=== PATIENT | female | born 1955 | race Caucasian/White ===

== ENCOUNTER → 2021-06-26 14:41 | Outpatient (CLI) | payer OTHER, MEDICAID, SELFPAY ==
--- NOTE | 2021-06-26 | DI.ECHO.S_ITS ---
[facility]---------+ [facility] +---------+ : : [address] [place] : : : : [id number] : : : : Phone: [phone] +---------+ Echocardiogram Report + + :Name: SPENCER MCCLURE Study Date: 06/26/2021 Height: 68 in : :[facility] ReadingLocation: Weight: 202 lb : : Gender: Female BSA: 2.1 m2 : :: 1955 Age: 65 yrs BP: 140/93 mmHg: :Reason For Study: ASCENDING AORTIC ENLARGEMENT : :Ordering Physician: Brenda : :Claus Espinzoa Performed By: Jayleen Forbes : + + Interpretation Summary 1) Normal left ventricular thickness, size, wall motion, and systolic function (EF 55-60%). 2) Normal right ventricular size and function. 3) There is mild aortic regurgitation. 4) The ascending aorta is moderately enlarged at 4.3cm. 5) No prior Echo available for comparison. Procedure: A two-dimensional transthoracic echocardiogram with color flow and Doppler was performed. The study quality was technically adequate. There is no prior echocardiogram noted for this patient. The patient was in normal sinus rhythm during the exam. Left Ventricle: The left ventricle appears normal in size, wall thickness, and systolic function without any focal wall motion abnormalities. The ejection fraction is estimated to be 55-60%. Diastolic parameters suggest a relaxation abnormality of the left ventricle, consistent with probable normal filling pressures. Right Ventricle: The right ventricle is normal in size and function. Atria: There is borderline biatrial enlargement. There is no Doppler evidence for an interatrial shunt. Mitral Valve: The mitral valve is normal in structure and function. The mitral valve leaflets are slightly calcified. There is mild mitral regurgitation. Aortic Valve: The aortic valve is trileaflet. The aortic valve opens well. There is no aortic valve stenosis. There is mild aortic regurgitation. Tricuspid Valve: The tricuspid valve is normal in structure and function. There is a trace or physiologic amount of tricuspid regurgitation. The right ventricular systolic pressure is estimated to be at least 27 mmHg based on an estimated right atrial pressure of 8 mm Hg. Pulmonic Valve: The pulmonic valve is not well seen, but is grossly normal. There is trace pulmonic regurgitation. Great Vessels: The aortic root is borderline dilated. The ascending aorta is moderately enlarged. The aortic arch is mildly enlarged. The IVC is of normal diameter and collapses less than 50% with a sniff. This suggests a right atrial pressure of 8 mm Hg. Pericardium/ Pleura There is no pericardial effusion. MMode/2D Measurements & Calculations LVIDd: 5.2 cm LVOT diam: 2.4 cm LVIDs: 3.6 cm Ao root diam: 4.0 cm FS: 30.5 % asc Aorta Diam: 4.3 cm EPSS: 0.70 cm Ao Arch Diam (Prox Trans): 3.7 cm IVSd: 0.91 cm LVPWd: 0.81 cm LV martinez. diameter/BSA (cm/m^2): 2.5 LV sys. diameter/BSA (cm/m^2): 1.8 LA A2 area: 20.1 cm2 RA long axis: 5.7 cm LA A4 area: 20.6 cm2 RA area: 20.3 cm2 LA length (vol): 5.7 cm RA vol: 61.0 ml LA vol: 62.3 ml RA : 29.7 ml/m2 LA vol index: 30.4 ml/m2 IVC diam: 1.7 cm RVD1 (basal): 3.6 cm TAPSE: 2.5 cm Doppler Measurements & Calculations Ao V2 max: 188.9 cm/sec LVOT Max Chris: 88.9 cm/sec Ao V2 mean: 129.4 cm/sec LV V1 max P.2 mmHg Ao max P.3 mmHg LV V1 VTI: 20.9 cm Ao mean P.3 mmHg DYLAN(I,D): 2.2 cm2 Ao V2 VTI: 42.1 cm DYLAN(V,D): 2.1 cm2 sev ratio: 0.50 DYLAN indexed to BSA (cm^2/m^2): 1.1 AI P1/2t: 693.0 msec AI dec slope: 173.6 cm/sec2 MV E max chris: 73.5 cm/sec TR max chris: 216.9 cm/sec MV A max chris: 85.0 cm/sec TR max P.8 mmHg MV E/A: 0.86 PA V2 max: 65.9 cm/sec Med Peak E' Chris: 5.0 cm/sec PA V2 mean: 41.6 cm/sec E/E' med: 14.8 PA mean P.84 mmHg Lat Peak E' Chris: 7.3 cm/sec PA pr(Accel): -6.6 mmHg E/E' lat: 10.1 E/e' average: 12.4 MV dec time: 0.29 sec SV(LVOT): 91.6 ml Reading Physician:11:00 AM
== END ==
PROVIDERS: PCP Physician Assistant Medical; Referring Provider Internal Medicine Cardiovascular Disease; Visit Provider Internal Medicine Cardiovascular Disease
DX: I77.89 Other specified disorders of arteries and arterioles (principal); I08.0 Rheumatic disorders of both mitral and aortic valves
CPT/HCPCS: 93306

== ENCOUNTER → 2022-07-06 09:04 | Outpatient (CLI) | payer OTHER, MEDICAID, SELFPAY ==
--- NOTE | 2022-07-06 | DI.ECHO.S_ITS ---
[facility] +---------+ [facility] +---------+ : : [address] : : : : [id number] : : : : Phone: [phone] +---------+ Echocardiogram Report + + :Name: SPENCER MCCLURE Study Date: 07/06/2022 Height: 68 in : :[facility] ReadingLocation: Weight: 195 lb : : Gender: Female BSA: 2.0 m2 : :: 1955 Age: 66 yrs BP: 134/82 mmHg: :Reason For Study: CHEST PAIN : :Ordering Physician: DAMION, : :MELVIN Performed By: Tea Crowley : :Referring: MELVIN ESPINOZA : + + Interpretation Summary 1) Normal left ventricular thickness, size, wall motion, and systolic function (EF 55-60%). 2) Normal right ventricular size and function. 3) There is mild to moderate aortic regurgitation. 4) The ascending aorta is moderately enlarged at 4.3cm. 5) Compared to the Echo done 06/26/2021, aortic regurgitation has increased from mild to mild-moderate on this study. Procedure: A two-dimensional transthoracic echocardiogram with color flow and Doppler was performed. The study quality was technically adequate. Comparison is made with the echocardiogram of 06/26/2021. The patient was in sinus rhythm with heart rates between 53-65 bpm during the exam. Left Ventricle: The left ventricle is normal in size and wall thickness. The ejection fraction is estimated to be 55-60%. Left ventricular systolic function appears normal without focal wall motion abnormalities. Diastolic parameters suggest a relaxation abnormality of the left ventricle, consistent with probable normal filling pressures. Right Ventricle: The right ventricle is normal in size and function. Atria: The left atrium is moderately dilated. The right atrium is normal in size. There is no Doppler evidence for an interatrial shunt. Mitral Valve: The mitral valve is normal in structure and function. There is mild mitral regurgitation. Aortic Valve: The aortic valve is trileaflet. The aortic valve opens well. There is no aortic valve stenosis. There is mild to moderate aortic regurgitation. Tricuspid Valve: The tricuspid valve is normal in structure and function. There is trace tricuspid regurgitation. Pulmonary artery pressures cannot be estimated because of the lack of a measurable TR jet velocity. Pulmonic Valve: The pulmonic valve leaflets are thin and pliable; valve motion is normal. There is no pulmonic valvular regurgitation. Great Vessels: The aortic root is borderline dilated. The ascending aorta is moderately enlarged. The IVC is of normal diameter and collapses greater than 50% with a sniff. This suggests a low right atrial pressure of 3 mm Hg. Pericardium/ Pleura There is no pericardial effusion. There is no pleural effusion. MMode/2D Measurements & Calculations LVIDd: 5.5 cm LVOT diam: 2.2 cm LVIDs: 3.5 cm Ao root diam: 4.0 cm FS: 37.2 % asc Aorta Diam: 4.3 cm EPSS: 0.93 cm Ao Arch Diam (Prox Trans): 3.4 cm IVSd: 0.83 cm LVPWd: 0.91 cm LV martinez. diameter/BSA (cm/m^2): 2.7 LV sys. diameter/BSA (cm/m^2): 1.7 LA A2 area: 24.6 cm2 RA long axis: 5.5 cm LA A4 area: 22.7 cm2 RA area: 18.2 cm2 LA length (vol): 5.9 cm RA vol: 51.0 ml LA vol: 80.9 ml RA : 25.2 ml/m2 LA vol index: 40.0 ml/m2 IVC diam: 1.7 cm RVD1 (basal): 3.4 cm RVD2 (mid): 2.8 cm TAPSE: 1.7 cm Doppler Measurements & Calculations Ao V2 max: 157.5 cm/sec LVOT Max Chris: 90.0 cm/sec Ao V2 mean: 110.9 cm/sec LV V1 max P.2 mmHg Ao max P.9 mmHg LV V1 VTI: 21.7 cm Ao mean P.4 mmHg DYLAN(I,D): 2.2 cm2 Ao V2 VTI: 38.4 cm DYLAN(V,D): 2.2 cm2 sev ratio: 0.57 DYLAN indexed to BSA (cm^2/m^2): 1.1 AI P1/2t: 740.8 msec AI dec slope: 162.3 cm/sec2 MV E max chris: 73.9 cm/sec PA V2 max: 85.0 cm/sec MV A max chris: 94.7 cm/sec PA V2 mean: 58.8 cm/sec MV E/A: 0.78 PA mean P.6 mmHg Med Peak E' Hcris: 4.4 cm/sec PA pr(Accel): 25.9 mmHg E/E' med: 16.7 Lat Peak E' Chris: 7.3 cm/sec E/E' lat: 10.1 E/e' average: 13.4 MV dec time: 0.30 sec SV(OT): 84.9 ml Reading Physician:03:01 PM
== END ==
PROVIDERS: PCP Physician Assistant Medical; Referring Provider Internal Medicine Cardiovascular Disease; Visit Provider Internal Medicine Cardiovascular Disease
DX: I77.89 Other specified disorders of arteries and arterioles (principal); I08.0 Rheumatic disorders of both mitral and aortic valves
CPT/HCPCS: 93306